=== PATIENT | female | born 1940 | race African-American/Black ===

== ENCOUNTER 2017-06-26 22:59 | Observation (INO) | payer OTHER, BC ==
[2017-06-27 00:19] VITALS: BMI 26.9
--- NOTE | 2017-06-27 01:16 | PDOC ---
Attending Attestation - HPI HPI: 06/27/17 01:37 The patient is a 76 year old female, with a significant past medical history of asthma, MVP with MVP pain syndrome, hypertension, and hyperlipidemia, who presents to the emergency department with, intermittent radiating left sided chest pain for three days. The patient reports the pain to radiate to the left upper back, neck, and shoulder. She ranks the pain as a 5. Documentation prepared by Anibal Rosado, acting as medical planner for Juancarlos Rincon MD. <Anibal Rosado - Last Filed: 06/27/17 01:37> - Resident Resident Name: Sara Vidal - ED Attending Attestation I have performed the following: I have examined & evaluated the patient, The case was reviewed & discussed with the resident, I agree w/resident's findings & plan, Exceptions are as noted - Physicial Exam PE: 06/27/17 02:22 Patient is awake and alert, well-nourished, asymptomatic, normotensive, with oxygen saturation of 98% in room air cta rrr No lower extremity edema bilaterally - Medical Decision Making 06/27/17 02:22 Patient is 76-year-old female with history of asthma, mitral valve prolapse who presents via with atypical chest discomfort for the past several days. EKG reveals no evidence of acute ischemia. Will obtain 2 sets of cardiac enzymes, we 'll obtain chest x-ray to rule out cardiomegaly/infiltrate still/effusion. Will discuss with cardiology regarding disposition and follow-up. <Juancarlos Rincon - Last Filed: 06/27/17 02:23>
--- NOTE | 2017-06-27 01:29 | PDOC ---
History of Present Illness - General Chief Complaint: Pain, Acute Stated Complaint: PAIN Time Seen by Provider: 06/27/17 00:56 History Source: Patient Exam Limitations: No Limitations - History of Present Illness Initial Comments: This is a 76 YOF with h/o asthma, MVP with MVP pain syndrome, HTN, and HLD who presents c/o left-sided chest pain radiating to the left neck, left upper back, and shoulder for the past 3 days. The pain is a 5/10 ache with sharper twinges, it is intermittent lasting 5-10 minutes at a time, and comes on about 2 times/ day. It worsens when she moves her left arm. She additionally notes nausea, SOB ("feel like I can't get enough oxygen"), headache, and cough. She is unmedicated for her HTN and HLD because of stated allergic reactions to most medications she has ever tried. She otherwise denies any symptoms lately. Past History - Past Medical History Allergies/Adverse Reactions: Allergies Allergy/AdvReac Type Severity Reaction Status Date / Time Penicillins Allergy Intermediate Swelling Verified 06/27/17 00:17 Sulfa (Sulfonamide Allergy Intermediate Rash Verified 06/27/17 00:17 Antibiotics) all blood pressure meds Allergy Uncoded 06/27/17 00:17 Home Medications: Ambulatory Orders Ascorbic Acid [Vitamin C] 1 tab PO DAILY 04/03/13 Vitamin B Complex [B Complex] 1 each PO DAILY 04/03/13 Multivitamins [Multivit ([facility] Formulary)] 1 each PO DAILY 04/04/13 Ranitidine HCl [Zantac] 150 mg PO DAILY PRN 09/24/14 L.acidoph,Paracasei, B.lactis [Probiotic] 1 each PO DAILY 03/10/17 Anemia: No Asthma: Yes Cancer: No Cardiac Disorders: Yes (MVP) CVA: No COPD: No CHF: No Dementia: No Diabetes: No GI Disorders: Yes (ACID REFLUX) Disorders: No HTN: Yes Hypercholesterolemia: Yes Liver Disease: No Seizures: No Thyroid Disease: No - Surgical History 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) Appendectomy: No Cardiac Surgery: No Cholecystectomy: No Lung Surgery: No Neurologic Surgery: No Orthopedic Surgery: No - Suicide/Smoking/Psychosocial Hx Smoking History: Never smoked Have you smoked in the past 12 months: No Information on smoking cessation initiated: No Hx Alcohol Use: No Drug/Substance Use Hx: No Substance Use Type: None Hx Substance Use Treatment: No Cardiac Specific PMH - Complaint Specific PMHX Pacemaker: No Review of Systems - Review of Systems Able to Perform ROS?: Yes Constitutional: No: Chills, Fever, Unexplained wgt Loss HEENTM: No: Nose Congestion, Throat Pain Respiratory: Yes: Cough, Shortness of Breath Cardiac (ROS): Yes: Chest Pain. No: Palpitations ABD/GI: Yes: Nausea. No: Constipated, Diarrhea, Vomiting : No: Burning, Dysuria Musculoskeletal: No: Back Pain, Neck Pain Integumentary: No: Bruising, Rash Neurological: No: Headache, Numbness, Tingling, Weakness, Dizziness Endocrine: No: Unexplained Weight Gain, Unexplained Weight Loss *Physical Exam - Vital Signs Last Vital Signs Temp Pulse Resp BP Pulse Ox 97.6 F 73 16 120/70 99 06/27/17 00:17 06/27/17 00:17 06/27/17 06:14 06/27/17 06:14 06/27/17 00:17 - Physical Exam General Appearance: Yes: Nourished, Appropriately Dressed, Other (pleasant older adult female, well appearing, mildly anxious, answering questions appropriately). No: Apparent Distress HEENT: positive: EOMI, FERMÍN, Normal Voice, Hearing Grossly Normal. negative: Scleral Icterus (R), Scleral Icterus (L), Nasal Congestion Neck: positive: Trachea midline, Supple. negative: Tender, Rigid Respiratory/Chest: positive: Lungs Clear, Normal Breath Sounds. negative: Respiratory Distress, Crackles, Rhonchi, Stridor, Wheezing Cardiovascular: positive: Regular Rhythm, Regular Rate. negative: Edema, JVD, Murmur Gastrointestinal/Abdominal: positive: Normal Bowel Sounds, Soft. negative: Tender, Organomegaly, Pulsatile Mass, Guarding Musculoskeletal: positive: Normal Inspection. negative: Decreased Range of Motion, Vertebral Tenderness Extremity: positive: Normal Capillary Refill, Normal Inspection, Normal Range of Motion. negative: Tender, Cyanosis Integumentary: positive: Normal Color, Dry, Warm. negative: Erythema, Rash, Bruising Neurologic: positive: optic fibre drawer II-XII NML intact (grossly), Fully Oriented, Alert, Normal Mood/Affect, Normal Response, Motor Strength 5/5 Heart Score/ECG Review - History History: Moderately suspicious - Electrocardiogram EKG: Normal - Age Age: >/= 65 - Risk Factors Risk Factors Heart Score: Yes Hx Hypercholesterolemia, Yes Hx Hypertension Based on the list above the patient has:: 1-2 risk factors - Troponin Troponin: </= normal limit - Score Heart Score - Total: 4 #1 ECG reviewed & interpreted by me at: 00:45 NSR rate 62, normal axes and intervals, no ST-T changes, LVH by voltage criteria ED Treatment Course - LABORATORY CBC & Chemistry Diagram: 06/27/17 01:56 06/27/17 01:56 - ADDITIONAL ORDERS Additional order review: Laboratory Results 06/27/17 06/27/17 06/27/17 01:56 01:56 01:56 WBC 5.0 RBC 3.88 Hgb 12.1 Hct 37.0 MCV 95.3 MCH 31.2 MCHC 32.7 RDW 13.4 Plt Count 258 MPV 7.3 L Neutrophils % 48.6 Lymphocytes % 39.0 Monocytes % 7.9 Eosinophils % 3.8 Basophils % 0.7 PT with INR 11.00 INR 0.97 Sodium 141 Potassium 3.7 Chloride 105 Carbon Dioxide 25 D Anion Gap 11 BUN 11 Creatinine 0.7 Creat Clearance w eGFR > 60 Random Glucose 110 H Calcium 8.8 Total Bilirubin 0.3 AST 15 ALT 22 D Alkaline Phosphatase 55 Creatine Kinase 168 Creatine Kinase Index 1.6 CK-MB (CK-2) 2.698 Troponin I < 0.02 Total Protein 7.0 Albumin 3.4 06/27/17 01:56 RBC 3.88 MCV 95.3 MCHC 32.7 RDW 13.4 MPV 7.3 L Neutrophils % 48.6 Lymphocytes % 39.0 Monocytes % 7.9 Eosinophils % 3.8 Basophils % 0.7 Medical Decision Making - Medical Decision Making 76 YOF with h/o MVP, asthma, HTN, HLD, p/w left CP radiating to left neck/ shoulder with SOB/nausea x3d. On exam VS wnl and patient is in NAD but appears anxious, heart and lung exams wnl, nontender abdomen, no edema. DDX IBNLT costochondritis, ACS, cholecystitis, PUD, anemia with demand ischemia , UTI/pyelo/renal stone, etc. Ordered is CBCD, CMP, cardiac panel, PT/INR, CXR, EKG. 06/27/17 04:11 Labs, EKG, CXR resulted unremarkable for possible causative pathology. Awaiting repeat troponin at 6 am. Will contact Pt's welding machine tender (Dr. Figueroa) at 6:30 am and plan dispo with him. Patient is pain free at this time. 06/27/17 06:06 Patient's troponin repeat is drawn and sent to lab awaiting results. Page is placed to Pt's welding machine tender (Dr. Figueroa) to inform of the patient's visit to the ED. Dr. Figueroa recommends obs admission with EKG in the morning, consult placed to him. Repeat EKG is ordered. [facility] is microblogged for obs tele admission. 06/27/17 06:37 Patient admitted to obs tele. Consult placed to Dr. Figueroa. *DC/Admit/Observation/Transfer Diagnosis at time of Disposition: Chest pain Qualifiers: Chest pain type: unspecified Qualified Code(s): R07.9 - Chest pain, unspecified - Discharge Dispostion Condition at time of disposition: Guarded Admit: Yes Decision to Admit order Date/Time: Decision to Admit Order Category Date Time Status Decision to Admit to Hospital Routine Admission 06/27/17 06:28 Ordered - Referrals - Patient Instructions - Post Discharge Activity
[2017-06-27 02:09] LABS: BASO % 0.7 % (0-2.0); EOS % 3.8 % (0-4.5); HEMOGLOBIN 12.1 GM/dL (10.7-15.3); MCH 31.2 pg (25.7-33.7); MCHC 32.7 g/dl (32.0-36.0); MEAN CELL VOLUME 95.3 fl (80-96); MEAN PLT VOLUME 7.3 fl (7.5-11.1); MONO % 7.9 % (3.8-10.2); NEUT % 48.6 % (42.8-82.8); PLATELET COUNT 258 K/MM3 (134-434); RBC 3.88 M/mm3 (3.60-5.2); RDW 13.4 % (11.6-15.6)
[2017-06-27 02:31] LABS: ALBUMIN 3.4 g/dl (3.4-5.0); ANION GAP 11 (8-16); BILIRUBIN,TOTAL 0.3 mg/dL (0.2-1.0); BLOOD UREA NITROGEN 11 mg/dL (7-18); CALCIUM 8.8 mg/dL (8.5-10.1); CHLORIDE 105 mmol/L (98-107); CO2 25 mmol/L (21-32); CREATININE 0.7 mg/dL (0.55-1.02); GLUCOSE,RANDOM 110 mg/dL (74-106); POTASSIUM 3.7 mmol/L (3.5-5.1); SGOT/AST 15 U/L (15-37); SGPT/ALT 22 U/L (12-78); SODIUM 141 mmol/L (136-145)
[2017-06-27 02:34] LABS: ALK PHOS 55 U/L (45-117)
[2017-06-27 02:42] LABS: INR 0.97 (0.82-1.09)
[2017-06-27] MEDS ORDERED: ALBUTEROL SO4 0.083% IH SOL 2.5 MG/3 ML VIAL.NEB. NEB PRN ×2 (09:31→10:20)
[2017-06-27] MEDS ORDERED: RANITIDINE HCL 150 MG TABLET (FP) PO PRN (09:31)
[2017-06-27] MEDS ORDERED: ASPIRIN 325 MG TABLET PO SCH (10:00)
[2017-06-27] MEDS ORDERED: ASPIRIN 325 MG TABLET ONE (10:19)
--- NOTE | 2017-06-27 10:25 | EKG ---
Test Reason : Blood Pressure : / mmHG Vent. Rate : 067 BPM Atrial Rate : 067 BPM P-R Int : 156 ms QRS Dur : 084 ms QT Int : 426 ms P-R-T Axes : 051 070 060 degrees QTc Int : 450 ms NORMAL SINUS RHYTHM NORMAL ECG WHEN COMPARED WITH ECG OF 27-JUN-2017 00:41, NO SIGNIFICANT CHANGE WAS FOUND Confirmed by SRUTHI YEN MD ([id number]) on 06/27/2017 10:25:12 AM Referred By: Confirmed By:SRUTHI YEN MD
--- NOTE | 2017-06-27 10:28 | EKG ---
Test Reason : Blood Pressure : / mmHG Vent. Rate : 062 BPM Atrial Rate : 062 BPM P-R Int : 164 ms QRS Dur : 092 ms QT Int : 426 ms P-R-T Axes : 050 041 049 degrees QTc Int : 432 ms NORMAL SINUS RHYTHM MINIMAL VOLTAGE CRITERIA FOR LVH, MAY BE NORMAL VARIANT BORDERLINE ECG WHEN COMPARED WITH ECG OF 24-SEP-2014 13:58, NO SIGNIFICANT CHANGE WAS FOUND Confirmed by YOVANA SOARES, SRUTHI ([id number]) on 06/27/2017 10:27:30 AM Referred By: Confirmed By:SRUTHI YEN MD
--- NOTE | 2017-06-27 12:25 | HP ---
CHIEF COMPLAINT: chest pain PCP: Dr. Morris HISTORY OF PRESENT ILLNESS: This is a 76 year old female with a PMH of mitral valve prolapse, asthma, RA, HTN, GERD who presents to the hospital complaining of chest pain that started around [place]ody Mulu-a week ago. It is intermittent, associated with physical activity, relieved by lying down. It is located on left side of the chest, radiating to the neck and back. She states that yesterday she had nausea that resolved today. The pt follows Dr Figueroa since 1995 and had cardiac workup done that was normal. She denies SOB, dizziness, lightheadedness, palpitations. ER course was notable for: (1)EKG, CXR (2)troponins negative PAST MEDICAL HISTORY: as above PAST SURGICAL HISTORY: myomectomy 2017 Social History: Smoking:no Alcohol:no Drugs:mo Family History: N/A Allergies Penicillins Allergy (Intermediate, Verified 06/27/17 00:17) Swelling Sulfa (Sulfonamide Antibiotics) Allergy (Intermediate, Verified 06/27/17 00:17) Rash G6PD all blood pressure meds Allergy (Uncoded 06/27/17 00:17) HOME MEDICATIONS: Home Medications Medication Instructions Recorded Ascorbic Acid [Vitamin C] 1 tab PO DAILY 04/03/13 Vitamin B Complex [B Complex] 1 each PO DAILY 04/03/13 Multivitamins [Multivit ([facility] 1 each PO DAILY 04/04/13 Formulary)] Ranitidine HCl [Zantac] 150 mg PO DAILY PRN 09/24/14 L.acidoph,Paracasei, B.lactis 1 each PO DAILY 03/10/17 [Probiotic] Albuterol 0.083% Nebulizer Michaelle 1 neb NEB QID PRN 06/27/17 [Ventolin 0.083%] Aspirin [ASA -] 325 mg PO DAILY 06/27/17 REVIEW OF SYSTEMS CONSTITUTIONAL: Absent: fever, chills, diaphoresis, generalized weakness HEENT: Absent: rhinorrhea, nasal congestion, throat pain, throat swelling CARDIOVASCULAR: chest pain, Absent: syncope, palpitations, irregular heart rate, lightheadedness RESPIRATORY: Absent: cough, shortness of breath, dyspnea with exertion, GASTROINTESTINAL: Absent: abdominal pain, nausea, vomiting, diarrhea, constipation, GENITOURINARY: Absent: dysuria, frequency, urgency, hesitancy, MUSCULOSKELETAL: neck pain Absent: myalgia, arthralgia, joint swelling, back pain, SKIN: Absent: rash, itching, pallor ENDOCRINE: Absent: unexplained weight gain, unexplained weight loss NEUROLOGIC: headache Absent: focal weakness or paresthesias, dizziness, unsteady gait PHYSICAL EXAMINATION Vital Signs - 24 hr 06/27/17 06/27/17 06/27/17 00:17 06:14 10:00 Temperature 97.6 F Pulse Rate 73 Pulse Rate [ 78 Apical] Respiratory 14 16 18 Rate Blood Pressure 137/93 Blood Pressure 120/70 130/80 [Right Arm] O2 Sat by Pulse 99 100 Oximetry (%) GENERAL: Awake, alert, and fully oriented, in no acute distress. HEAD: Normal with no signs of trauma. EYES: Pupils equal, round and reactive to light, extraocular movements intact, sclera anicteric EARS, NOSE, THROAT: oropharynx clear without exudates. Moist mucous membranes. NECK: Normal range of motion, supple without lymphadenopathy, JVD LUNGS: Breath sounds equal, clear to auscultation bilaterally. No wheezes, and no crackles. No accessory muscle use. HEART: Regular rate and rhythm, normal S1 and S2 without murmur, rub or gallop ABDOMEN: Soft, nontender, not distended, normoactive bowel sounds, no guarding, no rebound, no masses. MUSCULOSKELETAL: Normal range of motion at all joints. No bony deformities or tenderness. No CVA tenderness. UPPER EXTREMITIES: No peripheral edema. LOWER EXTREMITIES: No peripheral edema. NEUROLOGICAL: Normal speech, no facial asymmetry. Normal gait. PSYCHIATRIC: Cooperative. Good eye contact. Appropriate mood and affect. SKIN: Warm, dry, normal turgor, no rashes or lesions noted, abdominal scar s/p surgery. Laboratory Results - last 24 hr 06/27/17 06/27/17 06/27/17 01:56 01:56 01:56 WBC 5.0 RBC 3.88 Hgb 12.1 Hct 37.0 MCV 95.3 MCH 31.2 MCHC 32.7 RDW 13.4 Plt Count 258 MPV 7.3 L Neutrophils % 48.6 Lymphocytes % 39.0 Monocytes % 7.9 Eosinophils % 3.8 Basophils % 0.7 PT with INR 11.00 INR 0.97 Sodium 141 Potassium 3.7 Chloride 105 Carbon Dioxide 25 D Anion Gap 11 BUN 11 Creatinine 0.7 Creat Clearance w eGFR > 60 Random Glucose 110 H Calcium 8.8 Total Bilirubin 0.3 AST 15 ALT 22 D Alkaline Phosphatase 55 Creatine Kinase 168 Creatine Kinase Index 1.6 CK-MB (CK-2) 2.698 Troponin I < 0.02 Total Protein 7.0 Albumin 3.4 06/27/17 06/27/17 06:24 10:45 WBC RBC Hgb Hct MCV MCH MCHC RDW Plt Count MPV Neutrophils % Lymphocytes % Monocytes % Eosinophils % Basophils % PT with INR INR Sodium Potassium Chloride Carbon Dioxide Anion Gap BUN Creatinine Creat Clearance w eGFR Random Glucose Calcium Total Bilirubin AST ALT Alkaline Phosphatase Creatine Kinase 152 Creatine Kinase Index 1.3 CK-MB (CK-2) 2.074 Troponin I < 0.02 < 0.02 Total Protein Albumin ASSESSMENT/PLAN: 76 year old female with a PMH of mitral valve prolapse, asthma, RA, HTN, GERD who presents to the hospital complaining of chest pain that started a week ago, she is admitted for observation. Chest pain: -typical for ACS( located on left side of her chest, radiating to the neck and arm, worse with physical activity, relieved by rest) -trended troponins x 3-negative -ECG no acute changes, -KIM score 3 -consulted Track Repair Supervisor- Dr. Figueroa-will discuss need for stress test -const ASA -monitor on telemetry -cardiac monitoring -low probability of PE, D-Dimer pending Asthma: -cont Albuterol inhaler RA: -stable, no meds HTN: -no meds DVT PPX: -early ambulation Dispo: we will contact Track Repair Supervisor, observation for now. Case discussed with Dr Fajardo and Dr Velasco. Full H&P to follow. Problem List - Problem (1) Chest pain Code(s): R07.9 - CHEST PAIN, UNSPECIFIED Qualifiers: Chest pain type: unspecified Qualified Code(s): R07.9 - Chest pain, unspecified Visit type - Emergency Visit Emergency Visit: Yes ED Registration Date: 06/27/17 Care time: The patient presented to the Emergency Department on the above date and was hospitalized for further evaluation of their emergent condition. - New Patient This patient is new to me today: Yes Date on this admission: 06/27/17 - Critical Care Critical Care patient: No
--- NOTE | 2017-06-27 12:35 | HP ---
CHIEF COMPLAINT: Left-sided chest pain PCP: Dr. Lizzy Payne Top Collar Baster: Dr. Figueroa HISTORY OF PRESENT ILLNESS: 76F with PMH of mitral valve prolaspse with associated chest pain syndrome, htn , hld, asthma, presents with intermittent Left-sided chest pain since (x 7 days). Pain is brought on by exertion and relieved with rest. Pt reports getting the pain about twice per day. Pain is described as sharp, lasting for only a few seconds, rated 5/10, radiating to Left neck and back. The feeling that radiates to the Left neck and back is a feeling of pressure which lasts for a couple hours after each episode of chest pain, and also resolves on its own. Pt also reports some coughing and sore throat x 1 wk. Pt reports some sob yesterday prompting her to come to the ER, which has since resolved. Pt denies sick contacts. Pt reports intolerance to most medications. She takes garlic for her htn. She takes vinegar and honey for her asthma, and also Albuterol prn. She takes glucosamine for her rheumatoid arthritis. She occasionally takes Zantac for her GERD. She occasionally takes full-dose ASA. ER course was notable for: (1) VSS (2) trop (-) x 3 (3) cbc and bmp wnl PAST MEDICAL HISTORY: mitral valve prolapse with associated chest pain syndrome htn hld asthma rheumatoid arthritis GERD PAST SURGICAL HISTORY: hysteroscopic myomectomy 2/ post-menopausal bleeding 02/2017 exploratory laporatomy for liver tumor Social History: Smoking: never Alcohol: denies Drugs: denies Allergies Penicillins Allergy (Intermediate, Verified 06/27/17 00:17) Swelling Sulfa (Sulfonamide Antibiotics) Allergy (Intermediate, Verified 06/27/17 00:17) Rash G6PD all blood pressure meds Allergy (Uncoded 06/27/17 00:17) HOME MEDICATIONS: Home Medications Medication Instructions Recorded Ascorbic Acid [Vitamin C] 1 tab PO DAILY 04/03/13 Vitamin B Complex [B Complex] 1 each PO DAILY 04/03/13 Multivitamins [Multivit ([facility] 1 each PO DAILY 04/04/13 Formulary)] Ranitidine HCl [Zantac] 150 mg PO DAILY PRN 09/24/14 L.acidoph,Paracasei, B.lactis 1 each PO DAILY 03/10/17 [Probiotic] Albuterol 0.083% Nebulizer Michaelle 1 neb NEB QID PRN 06/27/17 [Ventolin 0.083%] Aspirin [ASA -] 325 mg PO DAILY 06/27/17 REVIEW OF SYSTEMS CONSTITUTIONAL: Absent: fever, chills, diaphoresis, generalized weakness, malaise, loss of appetite, weight change HEENT: sore throat Absent: rhinorrhea, nasal congestion, visual changes CARDIOVASCULAR: chest pain Absent: irregular heart rate, lightheadedness, peripheral edema RESPIRATORY: cough, sob Absent: orthopnea, wheezing, stridor, hemoptysis GASTROINTESTINAL: nausea Absent: abdominal pain, abdominal distension, vomiting, diarrhea, constipation, melena, hematochezia GENITOURINARY: Absent: dysuria, hematuria MUSCULOSKELETAL: arthralgia 2/2 rheumatoid arthritis Absent: myalgia, joint swelling, back pain, neck pain SKIN: Absent: rash, itching, pallor HEMATOLOGIC/IMMUNOLOGIC: Absent: easy bleeding, easy bruising ENDOCRINE: Absent: unexplained weight gain, unexplained weight loss NEUROLOGIC: headaches - chronic Absent: focal weakness or paresthesias, dizziness PHYSICAL EXAMINATION Vital Signs - 24 hr 06/27/17 06/27/17 06/27/17 00:17 06:14 10:00 Temperature 97.6 F Pulse Rate 73 Pulse Rate [ 78 Apical] Respiratory 14 16 18 Rate Blood Pressure 137/93 Blood Pressure 120/70 130/80 [Right Arm] O2 Sat by Pulse 99 100 Oximetry (%) GENERAL: Awake, alert, and fully oriented, in no acute distress. HEAD: Normal with no signs of trauma. EYES: Extraocular movements intact, sclera anicteric, conjunctiva clear. No lid lag. EARS, NOSE, THROAT: Ears normal, nares patent, oropharynx clear without exudates , nonerythematous. NECK: Normal range of motion, supple without lymphadenopathy, JVD, or masses. LUNGS: Breath sounds equal, clear to auscultation bilaterally. No wheezes, and no crackles. No accessory muscle use. HEART: Regular rate and rhythm, normal S1 and S2 without murmur, rub or gallop. ABDOMEN: Soft, nontender, not distended, no guarding. LOWER EXTREMITIES: Warm, well-perfused. No calf tenderness. No peripheral edema. NEUROLOGICAL: Cranial nerves grossly II-XII intact. Normal speech. PSYCHIATRIC: Cooperative. Good eye contact. Appropriate mood and affect. SKIN: Warm, dry, normal turgor, no rashes or lesions noted. Laboratory Results - last 24 hr 06/27/17 06/27/17 06/27/17 01:56 01:56 01:56 WBC 5.0 RBC 3.88 Hgb 12.1 Hct 37.0 MCV 95.3 MCH 31.2 MCHC 32.7 RDW 13.4 Plt Count 258 MPV 7.3 L Neutrophils % 48.6 Lymphocytes % 39.0 Monocytes % 7.9 Eosinophils % 3.8 Basophils % 0.7 PT with INR 11.00 INR 0.97 Sodium 141 Potassium 3.7 Chloride 105 Carbon Dioxide 25 D Anion Gap 11 BUN 11 Creatinine 0.7 Creat Clearance w eGFR > 60 Random Glucose 110 H Calcium 8.8 Total Bilirubin 0.3 AST 15 ALT 22 D Alkaline Phosphatase 55 Creatine Kinase 168 Creatine Kinase Index 1.6 CK-MB (CK-2) 2.698 Troponin I < 0.02 Total Protein 7.0 Albumin 3.4 06/27/17 06/27/17 06:24 10:45 WBC RBC Hgb Hct MCV MCH MCHC RDW Plt Count MPV Neutrophils % Lymphocytes % Monocytes % Eosinophils % Basophils % PT with INR INR Sodium Potassium Chloride Carbon Dioxide Anion Gap BUN Creatinine Creat Clearance w eGFR Random Glucose Calcium Total Bilirubin AST ALT Alkaline Phosphatase Creatine Kinase 152 Creatine Kinase Index 1.3 CK-MB (CK-2) 2.074 Troponin I < 0.02 < 0.02 Total Protein Albumin IMAGIN06/27/17 CXR -> no acute chest pathology ASSESSMENT/PLAN: 76F with PMH of MVP with associated chest pain syndrome, htn, hld, asthma, RA, GERD, presents with intermittent Left-sided chest pain x 7 days, admitted to [facility] Obs. # chest pain - most recent Echo 10/2014 reveals Left ventricle normal in size, thickness and function. Right ventricle normal in size and function. Mild aortic sclerosis and moderate aortic regurg. - f/u Echo - trops (-) x 3 - continue ASA - Cardiology Consult with pt's Top Collar Baster Dr. Figueroa - consider stress test as inpt or outpt # htn - pt reports intolerance to all blood pressure medications - continue to monitor # hld - pt reports intolerance to anti-hyperlipidemic medications - f/u lipid panel # asthma - continue home med of Albuterol prn # GERD - continue min emed of Zantac # FEN - Fluids: po - Electrolytes: wnl, continue to monitor - Nutrition: low sodium diet # Prophylaxis - DVT ppx with early ambulation Visit type - Emergency Visit Emergency Visit: Yes ED Registration Date: 06/27/17 Care time: The patient presented to the Emergency Department on the above date and was hospitalized for further evaluation of their emergent condition. - New Patient This patient is new to me today: Yes Date on this admission: 06/27/17 - Critical Care Critical Care patient: No
--- NOTE | 2017-06-27 13:56 | PN ---
Teaching Attending Note Name of Resident: Jacquelyn Velasco ATTENDING PHYSICIAN STATEMENT I saw and evaluated the patient. I reviewed the resident's note and discussed the case with the resident. I agree with the resident's findings and plan as documented. SUBJECTIVE:76yo F with PMH ashtma, MVP, RA, HTN, dyslipdemia presenting with CP x1 week. CP intermittently on exertion with radiation to the neck. sometimes assoc with nausea and SOB. states she takes all herbal supplements for her "disease" and no medications. no stress test or cardiac cath. dnies CP at this time, SOB, fever, chills, cough, N/V/C/D OBJECTIVE: Last Vital Signs Temp Pulse Resp BP Pulse Ox 97.6 F 89 18 137/93 98 06/27/17 00:17 06/27/17 12:10 06/27/17 12:10 06/27/17 12:10 06/27/17 12:33 General NAD CV S1 S2 + no chest wall tenderness ASSESSMENT AND PLAN: 76yo F with PMH ashtma, MVP, RA, HTN, dyslipdemia presenting with CP x1 week 1. Typical CP- tele observation. no events on director of cardiac rehabilitation. CE neg x 3. will check ddimer. start cardizem po. spoke with Dr Laws about plan. pt will need stress test. pt agrees to follow up with [employer]et [employer] for stress test on . will d/c on cardizem an NTG SL. stressed importance of follow up and medication compliance. verbalized understanding and agreement with plan
--- NOTE | 2017-06-27 14:54 | CONS ---
DATE OF CONSULTATION: 06/27/2017 CARDIOLOGY CONSULTATION REQUESTED BY: Juancarlos Rincon MD CHIEF COMPLAINT: Chest pain. A 76-year-old female with long-standing history of hypertension, hyperlipidemia, hyperlipidemia, bronchial asthma, mitral valve prolapse, and chronic atypical chest pain. Patient states last Wednesday she developed sharp left neck discomfort, which has been persistent. There is no clearcut relationship to change in position. It is nonexertional, nonpleuritic in nature. She also has been experiencing intermittent upper left sharp localized chest pain, which again is nonexertional and nonpleuritic. Patient had an episode of mild dyspnea and used her rescue inhaler, with mild relief. There is no history of wheezing, cough, or expectoration. The upper chest pain that she describes has been chronic in nature and states that has been occurring over several years and attributes it to mitral valve prolapse. No history of palpitations, lightheadedness, dizziness, presyncope, or syncope reported. No history of cough or expectoration. No history of diabetes mellitus. The patient has poor history of taking medications. Patient would stop her medications and the only thing she currently is taking is garlic pills [id number]. Her primary doctor has tried multiple medications in the past and patient states that she develops side effects and has discontinued them. PAST HISTORY: As mentioned in the history of present illness. SOCIAL HISTORY: She is single, retired, does not smoke, has occasional glass of wine. FAMILY HISTORY: Father in his 60s of a myocardial infarction, had hypertension, and because of a cerebrovascular accident. had atrial fibrillation and was hypertensive. She had 1 sister who of pancreatic cancer. SURGICAL HISTORY: 1. Status post tonsillitis. 2. Right breast benign cyst. 3. Exploratory surgery for a possible liver tumor, which was negative. ALLERGIES: Intolerance to MULTIPLE MEDICATIONS. MEDICATIONS: None. REVIEW OF SYSTEMS: Constitutional: No history of chills, fever or night sweats. No history of unintentional weight loss. HEENT: No history of headaches, diplopia, blurred vision reported. No history of epistaxis, hoarseness, tinnitus or deafness. Cardiovascular: See history of present illness. Respiratory: No history of cough, expectoration or hemoptysis. See history of present illness. Gastrointestinal: History of gastroesophageal reflux disease. No history of nausea, vomiting, melena, or hematemesis. No history of abdominal pain or discomfort. No history of change in bowel habits reported. Central nervous system: No history of seizures or syncope. No history of focal weakness. Denies having lightheadedness or dizziness. Endocrine: No history of polyuria or polydipsia. No history of intolerance to cold or warm weather. Musculoskeletal: No history of myalgias or arthralgias reported. Genitourinary: History of uterine polyps removed on 2 different occasions. No history of dysuria, frequency, or hematuria. Hematological: No history of ecchymosis, bleeding, or anemia. EXAMINATION: General: A 76-year-old female, who is alert and coherent, was in no distress. No pallor, cyanosis, clubbing, or jaundice. Vital Signs: Blood pressure 146/96 mmHg. Pulse 86 beats per minute and regular. Weight was 162 pounds. Neck: Supple. No jugular venous distention. Carotids were 2+. Upstrokes were normal. No bruits were heard and no thyromegaly was present. Heart: No heaves or thrills. S1 and S2 were normal. Non-ejection systolic clicks were heard along the left sternal border and apex. No murmur or gallops were heard. Lungs: Clear on auscultation. Chest: Normal AP diameter. Expansion was symmetrical. Abdomen: Soft, protuberant, and nontender. No hepatosplenomegaly or palpable masses were felt. Bowel sounds were present. No bruits were heard. Extremities: No calf tenderness or dependent edema. Femoral pulses were 2+. ECG reported as normal sinus rhythm, minimal voltage criteria for LVH, may be normal variant. Borderline ECG. When compared to ECG of 24 September 2014, no significant change was found. Repeat electrocardiogram revealed normal sinus rhythm and no significant change was reported when compared to earlier tracing. X-ray of chest impression: No acute chest pathology. No change of adverse nature seen. LABORATORY DATA: June 27, 2017, WBC count 5000, hemoglobin 12.1 g, platelet count 250,000, normal differential. Chemistry: Sodium 141, potassium 3.7, chloride 105, CO2 25, BUN 11, creatinine 0.7, random glucose 110 mg/dL. CK 168 and 152 respectively. Troponin is less than 0.02 on 3 different occasions. IMPRESSION: 1. Chest pain syndrome, atypical for coronary artery disease. 2. History of mitral valve prolapse. 3. Gastroesophageal reflux disease. 4. Hypertension, poorly controlled. 5. Bronchial asthma. RECOMMENDATIONS: 1. Long discussion regarding the need for medication for control of blood pressure. She is aware of the increased risks associated with ongoing hypertension, which includes but not limited to cerebrovascular accident, myocardial infarction, renal failure. 2. Counseled regarding dietary restrictions, especially curtailing salt intake. 3. Is being started on Cardizem CD 120 mg p.o. daily nightly. 4. Aspirin 81 mg p.o. daily. 5. She should continue ranitidine 150 mg p.o. nightly. 6. Patient has an appointment in the office on the 01 of July. 7. Further testing to be done on an outpatient basis. 8. Followup with PCP. Thank you for your referral. Yours sincerely, OSBALDO SEALS M.D. [id number]
--- NOTE | 2017-06-27 15:23 | DS ---
Physical Exam: SUBJECTIVE: Patient seen and examined. Asymptomatic at this time, offering no complaints. Pt denies chest pain, sob, abdominal pain, nausea, vomiting, fever , chills. Pt feels ready to go home. OBJECTIVE: Vital Signs Period Temp Pulse Resp BP Sys/Loza Pulse Ox Last 24 Hr 97.6 F 73-89 14-18 120-137/70-93 98-100 PHYSICAL EXAM GENERAL: Awake, alert, and fully oriented, in no acute distress. LUNGS: Breath sounds equal, clear to auscultation bilaterally. No wheezes, and no crackles. No accessory muscle use. HEART: Regular rate and rhythm, normal S1 and S2 without murmur, rub or gallop. (-) chest wall tenderness. ABDOMEN: Soft, nontender, not distended, no guarding. LOWER EXTREMITIES: Warm, well-perfused. No calf tenderness. No peripheral edema. PSYCHIATRIC: Cooperative. Good eye contact. Appropriate mood and affect. SKIN: Warm, dry, normal turgor, no rashes or lesions noted. LABS Laboratory Results - last 24 hr 06/27/17 06/27/17 06/27/17 01:56 01:56 01:56 WBC 5.0 RBC 3.88 Hgb 12.1 Hct 37.0 MCV 95.3 MCH 31.2 MCHC 32.7 RDW 13.4 Plt Count 258 MPV 7.3 L Neutrophils % 48.6 Lymphocytes % 39.0 Monocytes % 7.9 Eosinophils % 3.8 Basophils % 0.7 PT with INR 11.00 INR 0.97 D-Dimer Sodium 141 Potassium 3.7 Chloride 105 Carbon Dioxide 25 D Anion Gap 11 BUN 11 Creatinine 0.7 Creat Clearance w eGFR > 60 Random Glucose 110 H Calcium 8.8 Total Bilirubin 0.3 AST 15 ALT 22 D Alkaline Phosphatase 55 Creatine Kinase 168 Creatine Kinase Index 1.6 CK-MB (CK-2) 2.698 Troponin I < 0.02 Total Protein 7.0 Albumin 3.4 06/27/17 06/27/17 06/27/17 06:24 10:45 13:55 WBC RBC Hgb Hct MCV MCH MCHC RDW Plt Count MPV Neutrophils % Lymphocytes % Monocytes % Eosinophils % Basophils % PT with INR INR D-Dimer 203 Sodium Potassium Chloride Carbon Dioxide Anion Gap BUN Creatinine Creat Clearance w eGFR Random Glucose Calcium Total Bilirubin AST ALT Alkaline Phosphatase Creatine Kinase 152 Creatine Kinase Index 1.3 CK-MB (CK-2) 2.074 Troponin I < 0.02 < 0.02 Total Protein Albumin HOSPITAL COURSE: Date of Admission:06/27/17 Date of Discharge: 06/27/17 76F with PMH of MVP with associated chest pain syndrome, htn, hld, asthma, RA, GERD, presents with intermittent Left-sided chest pain x 7 days, admitted to Tele Obs. No events on cardic monitor. CE (-) x 3. Ddimer (-). Pt cleared by Cardiology for discharge home with Cardizem and Nitroglycerin sublingual tablets. Pt to f/u with Dr. Figueroa in his office on 07/01/17 for stress test as outpt. 06/27/17 CXR -> no acute chest pathology Pt medically stable for discharge home. Minutes to complete discharge: 35 Discharge Summary Reason For Visit: CHEST PAIN Current Active Problems Chest pain (Acute) Condition: Improved - Instructions Diet, Activity, Other Instructions: You were treated for chest pain. New medications include: - Cardizem 120mg daily - Nitroglycerin tabs placed under the tongue as needed for your Angina. You may take 1 tab every 5 minutes, for a maximum of 3 tabs. If you have chest pain not relieved by your 3rd nitroglycerin tab, come to the ER. Continue your other home medications as prescribed. Follow-ups: - with your Aircraft Instrument Engineer (Dr. Figueroa) in his office on 07/01/17, for a stress test. Please return to the hospital immediately if you experience persistent or increased chest pain, difficulty breathing, or for any medical emergency. Referrals: James Figueroa MD [Staff Physician] - 07/01/17 Disposition: HOME - Home Medications Comprehensive Discharge Medication List: Ambulatory Orders Ascorbic Acid [Vitamin C] 1 tab PO DAILY 04/03/13 Vitamin B Complex [B Complex] 1 each PO DAILY 04/03/13 Multivitamins [Multivit ([facility] Formulary)] 1 each PO DAILY 04/04/13 Ranitidine HCl [Zantac] 150 mg PO DAILY PRN 09/24/14 L.acidoph,Paracasei, B.lactis [Probiotic] 1 each PO DAILY 03/10/17 Albuterol 0.083% Nebulizer Michaelle [Ventolin 0.083% Nebulizer Soln -] 1 neb NEB QID PRN 06/27/17 Aspirin [ASA -] 325 mg PO DAILY 06/27/17 Diltiazem [Cardizem -] 30 mg PO QID #120 tablet 06/27/17 Nitroglycerin 0.3 mg SL [id number] PRN #10 tab.subl 06/27/17 This patient is new to me today: No Emergency Visit: Yes ED Registration Date: 06/27/17 Care time: The patient presented to the Emergency Department on the above date and was hospitalized for further evaluation of their emergent condition. Critical Care patient: No - Discharge Referral Referred to [facility] Med P.C.: No
[2017-06-27 15:42] VITALS: BP 122/74; PULSE 78; TEMP 98
== END 2017-06-27 15:40 | disposition home or self-care (01) ==
LOC: JER 22:59 → JERBED 06-27 06:28
PROVIDERS: ADMIT Internal Medicine; ATTEND Hospitalist
DX: R07.9 Chest pain, unspecified (principal); I10 Essential (primary) hypertension; E78.5 Hyperlipidemia, unspecified; J45.909 Unspecified asthma, uncomplicated; I34.1 Nonrheumatic mitral (valve) prolapse; K21.9 Gastro-esophageal reflux disease without esophagitis; M06.9 Rheumatoid arthritis, unspecified; Z88.2 Allergy status to sulfonamides; Z88.8 Allergy status to other drugs, medicaments and biological substances; Z88.0 Allergy status to penicillin; Z79.82 Long term (current) use of aspirin
CPT/HCPCS: 36415; 71010-TC; 80053; 82550; 82553; 84484; 85025; 85379; 85610; 93005; 93010; 99285-25; G0378

== ENCOUNTER 2017-08-16 17:59 | Emergency (ER) | payer OTHER, BC ==
[2017-08-16 18:16] VITALS: BP 145/93; PULSE 87; TEMP 97.8; BMI 26.9
--- NOTE | 2017-08-16 18:18 | PDOC ---
Rapid Medical Evaluation Chief Complaint: Back Pain Time Seen by Provider: 08/16/17 18:16 Medical Evaluation: Allergies Allergy/AdvReac Type Severity Reaction Status Date / Time Penicillins Allergy Intermediate Swelling Verified 08/16/17 18:14 Sulfa (Sulfonamide Allergy Intermediate Rash Verified 08/16/17 18:14 Antibiotics) all blood pressure meds Allergy Uncoded 08/16/17 18:14 Vital Signs Temp Pulse Resp BP Pulse Ox 97.8 F 87 18 145/93 99 08/16/17 18:14 08/16/17 18:14 08/16/17 18:14 08/16/17 18:14 08/16/17 18:14 08/16/17 18:16 I have performed a brief in-person evaluation of this patient. The patient presents with a chief complaint of: mitral valve prolapse hx, left sided back pain, sent by Dr. Figueroa to come in for eval, denies CP/SOB Pertinent physical exam findings: well appearing I have ordered the following: cardiac workup The patient will proceed to the ED for further evaluation. Discharge Disposition - Diagnosis Back pain - Referrals - Patient Instructions - Post Discharge Activity
[2017-08-16 18:52] LABS: BASO % 0.8 % (0-2.0); EOS % 2.8 % (0-4.5); HEMATOCRIT 37.6 % (32.4-45.2); HEMOGLOBIN 12.6 GM/dL (10.7-15.3); LYMPH % 35.4 % (8-40); MCH 31.6 pg (25.7-33.7); MCHC 33.5 g/dl (32.0-36.0); MEAN CELL VOLUME 94.4 fl (80-96); MEAN PLT VOLUME 7.7 fl (7.5-11.1); MONO % 7.9 % (3.8-10.2); NEUT % 53.1 % (42.8-82.8); PLATELET COUNT 310 K/MM3 (134-434); RBC 3.99 M/mm3 (3.60-5.2); RDW 13.4 % (11.6-15.6)
--- NOTE | 2017-08-16 19:12 | PDOC ---
History of Present Illness <Jenn Oliva - Last Filed: 08/16/17 21:33> - General History Source: Patient, Old Records Exam Limitations: No Limitations - History of Present Illness Initial Comments: 08/16/17 21:41 Patient is a 76 year old female with a significant past medical history of mitral valve prolapse with associated chest pain syndrome, htn, hld, asthma, who presents to the ED with complaints of left flank pain that began this morning. Patient reports experiencing sudden left flank pain while at home that she states began as an aching pain just over her ribs. She reports believing pain to be cardiac related, prompting her to call her machine cementer and folder. Patient reports machine cementer and folder stated she might have a pneumonia, and advised her to come into the ED for further evaluation. She reports pain began to radiate upper and around her body towards her neck as well as increase into a sharp pain. Denies chest pain, Sob. Denies nausea, vomiting. Denies fevers, chills. Denies trauma to affected area. Denies contact with sick individuals, out of state traveling. Denies any other symptoms. Allergies: Sulfa, Penicillin, Blood pressure meds. Social history: No smoking. No alcohol. No illicit drugs. Surgical history: hysteroscopic myomectomy / post-menopausal bleeding 02/2017 exploratory laparotomy for liver tumor PMD: Dr. Michael Mckinney Cardiology: Dr. Figueroa <Ken Yañez - Last Filed: 08/16/17 21:42> - General Chief Complaint: Back Pain Stated Complaint: PAIN Time Seen by Provider: 08/16/17 18:16 Past History - Past Medical History Anemia: No Asthma: Yes Cancer: No Cardiac Disorders: Yes (MVP) CVA: No COPD: No CHF: No Dementia: No Diabetes: No GI Disorders: Yes (ACID REFLUX) Disorders: No HTN: Yes Hypercholesterolemia: Yes Liver Disease: No Seizures: No Thyroid Disease: No - Surgical History 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) Appendectomy: No Cardiac Surgery: No Cholecystectomy: No Lung Surgery: No Neurologic Surgery: No Orthopedic Surgery: No - Suicide/Smoking/Psychosocial Hx Smoking History: Never smoked Have you smoked in the past 12 months: No Hx Alcohol Use: No Drug/Substance Use Hx: No Substance Use Type: None Hx Substance Use Treatment: No <Jenn Oliva - Last Filed: 08/16/17 21:33> <Ken Yañez - Last Filed: 08/16/17 21:42> - Past Medical History Allergies/Adverse Reactions: Allergies Allergy/AdvReac Type Severity Reaction Status Date / Time Penicillins Allergy Intermediate Swelling Verified 08/16/17 18:14 Sulfa (Sulfonamide Allergy Intermediate Rash Verified 08/16/17 18:14 Antibiotics) all blood pressure meds Allergy Uncoded 08/16/17 18:14 Home Medications: Ambulatory Orders Ascorbic Acid [Vitamin C] 1 tab PO DAILY 04/03/13 Vitamin B Complex [B Complex] 1 each PO DAILY 04/03/13 Multivitamins [Multivit ([facility] Formulary)] 1 each PO DAILY 04/04/13 Ranitidine HCl [Zantac] 150 mg PO DAILY PRN 09/24/14 L.acidoph,Paracasei, B.lactis [Probiotic] 1 each PO DAILY 03/10/17 Albuterol 0.083% Nebulizer Michaelle [Ventolin 0.083% Nebulizer Soln -] 1 neb NEB QID PRN 06/27/17 Aspirin 81 mg PO DAILY #30 tab.chew 06/27/17 Diltiazem HCl [Cardizem LA] 120 mg PO DAILY #30 tab.er.24h 06/27/17 Nitroglycerin 0.3 mg SL [id number] PRN #10 tab.subl 06/27/17 Review of Systems - Review of Systems Able to Perform ROS?: Yes Comments:: 08/16/17 21:41 GENERAL/CONSTITUTIONAL: No fever or chills. No weakness. HEAD, EYES, EARS, NOSE AND THROAT: No change in vision. No ear pain or discharge. No sore throat. GASTROINTESTINAL: No nausea, vomiting, diarrhea or constipation. GENITOURINARY: No dysuria, frequency, or change in urination. CARDIOVASCULAR: No chest pain or shortness of breath. RESPIRATORY: No cough, wheezing, or hemoptysis. MUSCULOSKELETAL: +Left flank pain. No joint or muscle swelling or pain. No neck pain. SKIN: No rash NEUROLOGIC: No headache, vertigo, loss of consciousness, or change in strength/ sensation. ENDOCRINE: No increased thirst. No abnormal weight change. HEMATOLOGIC/LYMPHATIC: No anemia, easy bleeding, or history of blood clots. ALLERGIC/IMMUNOLOGIC: No hives or skin allergy. <Ken Yañez - Last Filed: 08/16/17 21:42> *Physical Exam - Vital Signs Last Vital Signs Temp Pulse Resp BP Pulse Ox 97.8 F 87 18 145/93 99 08/16/17 18:14 18 18:14 18 18:14 18 18:14 08/16/17 18:14 <Jenn Oliva - Last Filed: 08/16/17 21:33> - Vital Signs Last Vital Signs Temp Pulse Resp BP Pulse Ox 97.8 F 87 18 145/93 99 08/16/17 18:14 18 18:14 18 18:14 18 18:14 08/16/17 18:14 - Physical Exam Comments: 08/16/17 21:41 GENERAL: Awake, alert, and fully oriented, in no acute distress HEAD: No signs of trauma EYES: PERRLA, EOMI, sclera anicteric, conjunctiva clear ENT: Auricles normal inspection, hearing grossly normal, nares patent, oropharynx clear without exudates. Moist mucosa NECK: Normal ROM, supple, no lymphadenopathy, JVD, or masses LUNGS: Breath sounds equal, clear to auscultation bilaterally. No wheezes, and no crackles HEART: Regular rate and rhythm, normal S1 and S2, no murmurs, rubs or gallops ABDOMEN: Soft, nontender, normoactive bowel sounds. No guarding, no rebound. No masses MUSCULOSKELETAL: + tenderness over left posterolateral ribs EXTREMITIES: Normal range of motion, no edema. No clubbing or cyanosis. No cords, erythema, or tenderness NEUROLOGICAL: Cranial nerves II through XII grossly intact. Normal speech, normal gait SKIN: Warm, Dry, normal turgor, no rashes or lesions noted. <Ken Yañez - Last Filed: 08/16/17 21:42> ED Treatment Course - LABORATORY CBC & Chemistry Diagram: 08/16/17 18:37 08/16/17 18:37 - ADDITIONAL ORDERS Additional order review: 08/16/17 18:37 RBC 3.99 MCV 94.4 MCHC 33.5 RDW 13.4 MPV 7.7 Neutrophils % 53.1 Lymphocytes % 35.4 Monocytes % 7.9 Eosinophils % 2.8 Basophils % 0.8 <Jenn Oliva - Last Filed: 08/16/17 21:33> - LABORATORY CBC & Chemistry Diagram: 08/16/17 18:37 08/16/17 18:37 - ADDITIONAL ORDERS Additional order review: Laboratory Results 08/16/17 02 18:37 18:37 PT with INR 11.10 INR 0.98 Sodium 139 Potassium 3.9 Chloride 105 Carbon Dioxide 28 Anion Gap 6 L BUN 11 Creatinine 0.8 Creat Clearance w eGFR > 60 Random Glucose 94 Calcium 8.7 Magnesium 2.1 Total Bilirubin 0.2 D AST 14 L ALT 22 Alkaline Phosphatase 68 Creatine Kinase 139 Troponin I < 0.02 Total Protein 7.7 Albumin 3.7 08/16/17 18:37 RBC 3.99 MCV 94.4 MCHC 33.5 RDW 13.4 MPV 7.7 Neutrophils % 53.1 Lymphocytes % 35.4 Monocytes % 7.9 Eosinophils % 2.8 Basophils % 0.8 - Medications Given in the ED: ED Medications Discontinued Medications Generic Name Dose Route Start Last Admin Trade Name Freq PRN Reason Stop Dose Admin Ibuprofen 600 mg 08/16/17 20:44 08/16/17 20:48 Motrin - PO 08/16/17 20:45 600 mg ONCE ONE Administration <Ken Yañez - Last Filed: 08/16/17 21:42> Medical Decision Making - Medical Decision Making 08/16/17 20:50 76F with MVP syndrome with atypical chest wall pain since this morning. No associated sxs to indicate ACS, is quite ttp to a very localized are of her L posterolateral chest wall. No skin changes, but early zoster is on the differential - I mentioned this to the patient and that she should look for signs of rash on a daily basis. EKG normal, labs unremarkable. Awaiting CXR, if normal, will likely dc home with PMD/cards f/u - follows with DR. Laws who recommended that pt come to ER for evaluation. If I'm able to reach Dr. Laws, I will discuss case with him prior to pt discharge. 08/16/17 21:33 I spoke to pt's machine cementer and folder, Dr. Laws about Ms Azar. He agrees with plan to discharge pt home, to recommend that she take her anti-HTN meds and tylenol/motrin. Less likely cardiac/pulm etiology, more likely muscular vs early zoster. Dr. Laws would like pt to call the office tomorrow for an appointment. <Jenn Oliva - Last Filed: 08/16/17 21:33> *DC/Admit/Observation/Transfer - Discharge Dispostion Admit: No <Jenn Oliva - Last Filed: 08/16/17 21:33> - Attestations Scribe Attestion: 08/16/17 21:41 Documentation prepared by Ken Yañez, acting as medical office clerk for Jenn Oliva DO, MD/. <Ken Yañez - Last Filed: 08/16/17 21:42> Diagnosis at time of Disposition: Back pain - Discharge Dispostion Disposition: HOME - Referrals Referrals: Lizzy Vargas MD [Staff Physician] - James Figueroa MD [Staff Physician] - - Patient Instructions Printed Discharge Instructions: DI for Thoracic Back Pain Additional Instructions: You were seen in the ER for back pain. You had labs, an EKG and a chest X-ray which were not concerning. We spoke with Dr. Laws who would like you to call the office tomorrow for an appointment. Please return to the ER if your symptoms worsen. Make sure to check your skin daily for a rash as this could possibly be early shingles. Take tylenol or motrin for pain and please make sure to take your blood pressure medications. - Post Discharge Activity
[2017-08-16 19:17] LABS: ALBUMIN 3.7 g/dl (3.4-5.0); ANION GAP 6 (8-16); BILIRUBIN,TOTAL 0.2 mg/dL (0.2-1.0); BLOOD UREA NITROGEN 11 mg/dL (7-18); CALCIUM 8.7 mg/dL (8.5-10.1); CHLORIDE 105 mmol/L (98-107); CO2 28 mmol/L (21-32); CREATININE 0.8 mg/dL (0.55-1.02); GLUCOSE,RANDOM 94 mg/dL (74-106); MAGNESIUM 2.1 mg/dL (1.8-2.4); POTASSIUM 3.9 mmol/L (3.5-5.1); SGOT/AST 14 U/L (15-37); SGPT/ALT 22 U/L (12-78); SODIUM 139 mmol/L (136-145); TOT PROT 7.7 g/dl (6.4-8.2)
[2017-08-16 19:18] LABS: INR 0.98 (0.82-1.09); PROTHROMBIN TIME (PATIENT) 11.1 SEC (9.98-11.88)
[2017-08-16 19:20] LABS: ALK PHOS 68 U/L (45-117)
[2017-08-16] MEDS ORDERED: IBUPROFEN 600 MG TABLET (FP) PO ONE ×2 (20:44→20:47)
--- NOTE | 2017-08-17 08:54 | EKG ---
Test Reason : Blood Pressure : / mmHG Vent. Rate : 069 BPM Atrial Rate : 069 BPM P-R Int : 156 ms QRS Dur : 082 ms QT Int : 398 ms P-R-T Axes : 009 021 029 degrees QTc Int : 426 ms NORMAL SINUS RHYTHM NORMAL ECG WHEN COMPARED WITH ECG OF 27-JUN-2017 06:39, NO SIGNIFICANT CHANGE WAS FOUND Confirmed by Savage Mclain MD ([id number]) on 08/17/2017 8:53:49 AM Referred By: Confirmed By:Savage Mclain MD
== END 2017-08-16 21:47 | disposition home or self-care (01) ==
LOC: SUPCPDRO 17:59 → JER 17:59
DX: M54.6 Pain in thoracic spine (principal); I10 Essential (primary) hypertension; K21.9 Gastro-esophageal reflux disease without esophagitis; I34.1 Nonrheumatic mitral (valve) prolapse
CPT/HCPCS: 36415; 71046-TC-FY; 80053; 82550; 83735; 84484; 85025; 85610; 93005; 93010; 99283-25

== ENCOUNTER 2017-10-26 16:54 | Observation (INO) | payer OTHER, BC ==
--- NOTE | 2017-10-26 17:06 | PDOC ---
Rapid Medical Evaluation Time Seen by Provider: 10/26/17 17:02 Medical Evaluation: Allergies Allergy/AdvReac Type Severity Reaction Status Date / Time Penicillins Allergy Intermediate Swelling Verified 08/16/17 18:14 Sulfa (Sulfonamide Allergy Intermediate Rash Verified 08/16/17 18:14 Antibiotics) all blood pressure meds Allergy Uncoded 08/16/17 18:14 10/26/17 17:02 I have performed a brief in-person evaluation of this patient. The patient presents with a chief complaint of: "soreness" to L chest since yesterday, sent in by Dr Figueroa of cardiology for eval, h/o asthma, RA, asthma, GERD, MVP, s/p neg stress test this year per pt (not on record here) Pertinent physical exam findings:BP 157/86, HR 109 I have ordered the following:ekg/cxr/labs The patient will proceed to the ED for further evaluation. 10/26/17 17:07 10/26/17 17:07 10/26/17 17:09
[2017-10-26 17:33] LABS: BASO % 0.8 % (0-2.0); EOS % 3.8 % (0-4.5); HEMATOCRIT 37.8 % (32.4-45.2); HEMOGLOBIN 13.1 GM/dL (10.7-15.3); LYMPH % 41.3 % (8-40); MCH 32.8 pg (25.7-33.7); MCHC 34.5 g/dl (32.0-36.0); MEAN PLT VOLUME 7.4 fl (7.5-11.1); NEUT % 44.1 % (42.8-82.8); PLATELET COUNT 324 K/MM3 (134-434); RBC 3.98 M/mm3 (3.60-5.2); RDW 13.2 % (11.6-15.6); WHITE BLOOD COUNT 5.7 K/mm3 (4.0-10.0)
--- NOTE | 2017-10-26 17:38 | PDOC ---
History of Present Illness - General Chief Complaint: Chest Pain Stated Complaint: PCP SENT Time Seen by Provider: 10/26/17 17:02 - History of Present Illness Initial Comments: 77 year old female with MVP and HTN presenting with chest pain for the past day. Describes the pain as semi positional and radiating to her left shoulder. It is not consistent or wakes her up out of bed but does worry her at is different than her usual pain from mitral valve prolapse. She was sent in by Dr. Figueroa's office earlier today after she called in and spoke to them about her chest pain. Denies fevers, chills, nausea, vomiting, diarrhea or constipation. 10/26/17 20:03 Past History - Past Medical History Allergies/Adverse Reactions: Allergies Allergy/AdvReac Type Severity Reaction Status Date / Time Penicillins Allergy Intermediate Swelling Verified 10/26/17 17:03 Sulfa (Sulfonamide Allergy Intermediate Rash Verified 10/26/17 17:03 Antibiotics) all blood pressure meds Allergy Uncoded 10/26/17 17:03 Home Medications: Ambulatory Orders Ascorbic Acid [Vitamin C] 1 tab PO DAILY 04/03/13 Vitamin B Complex [B Complex] 1 each PO DAILY 04/03/13 Multivitamins [Multivit ([facility] Formulary)] 1 each PO DAILY 04/04/13 Ranitidine HCl [Zantac] 150 mg PO DAILY 09/24/14 L.acidoph,Paracasei, B.lactis [Probiotic] 1 each PO DAILY 03/10/17 Albuterol 0.083% Nebulizer Michaelle [Ventolin 0.083% Nebulizer Soln -] 1 neb NEB QID PRN 06/27/17 Aspirin 81 mg PO DAILY #30 tab.chew 06/27/17 Nitroglycerin 0.3 mg SL [id number] PRN #10 tab.subl 06/27/17 Diltiazem HCl [Cardizem LA] 120 mg PO BID 10/26/17 Anemia: No Asthma: Yes Cancer: No Cardiac Disorders: Yes (MVP) CVA: No COPD: No CHF: No Dementia: No Diabetes: No GI Disorders: Yes (ACID REFLUX) Disorders: No HTN: Yes Hypercholesterolemia: Yes Liver Disease: No Seizures: No Thyroid Disease: No - Surgical History 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) Appendectomy: No Cardiac Surgery: No Cholecystectomy: No Lung Surgery: No Neurologic Surgery: No Orthopedic Surgery: No - Suicide/Smoking/Psychosocial Hx Smoking History: Never smoked Have you smoked in the past 12 months: No Hx Alcohol Use: No Drug/Substance Use Hx: No Substance Use Type: None Hx Substance Use Treatment: No Review of Systems - Review of Systems Constitutional: No: Chills, Diaphoresis, Fever HEENTM: No: Eye Pain, Blurred Vision, Recent change in vision Respiratory: No: Cough, Shortness of Breath, Wheezing, Productive cough Cardiac (ROS): Yes: Chest Pain, Chest Tightness. No: Edema, Irregular Heart Rate ABD/GI: No: Diarrhea, Nausea, Vomiting : No: Burning, Dysuria, Discharge, Hematuria Musculoskeletal: No: Back Pain, Muscle Pain, Muscle Weakness Integumentary: No: Bruising, Change in Color, Erythema, Flushing, Lesions Neurological: No: Headache, Numbness Psychiatric: No: Anxiety, Frequent Crying *Physical Exam - Vital Signs Last Vital Signs Temp Pulse Resp BP Pulse Ox 97.5 F L 109 H 17 157/86 99 10/26/17 17:03 10/26/17 17:03 10/26/17 17:03 10/26/17 17:03 10/26/17 17:03 ED Treatment Course - LABORATORY CBC & Chemistry Diagram: 10/27/17 07:40 10/27/17 07:40 Medical Decision Making - Medical Decision Making Admitted for low risk chest pain rule out as Dr. Figueroa was concerned about her overall repeat chest pain presentations and lack of medical compliance ( takes garlic instead of her anti-htn medications). Spoke to Dr. Figueroa ove the phone and he will be the consulting unmanned equipment operator and felt strongly about obs tele. She took aspirin 325 this AM so does not need it here. 10/26/17 20:16 *DC/Admit/Observation/Transfer Diagnosis at time of Disposition: Chest pain - Discharge Dispostion Disposition: HOME Condition at time of disposition: Improved - Referrals - Patient Instructions - Post Discharge Activity
--- NOTE | 2017-10-26 17:44 | PDOC ---
Attending Attestation - Resident Resident Name: LaraoNraxochilt - HPI HPI: 10/31/17 09:10 Pt presents to the ED complaining of substernal chest pain that is worse with burping or leaning forward. Pain is non exertional and not pleuritic. Denies pain if she is not leaning forward or burping. Denies abdominal pain. Pt has a prior history of similar pain, but this pain was more persistent, so she called her incoming inspector who advised her to come in. - Physicial Exam PE: 10/31/17 09:15 Agree with resident exam. Patient iswell appearing and in no acute distress. Lungs are clear. Heart has regular rate and rhythm. Abdomen is non tender. - Medical Decision Making 10/31/17 09:16 Pt presents to the ED complaining of chest pain. Her pain is atypical, and cardiac enzymes are negative. however, given her multiple risk factors for cardiac disease she may benefit for observation for rule out ACS. Will discuss with patient's incoming inspector.
[2017-10-26 18:06] LABS: ALBUMIN 3.8 g/dl (3.4-5.0); ANION GAP 4 (8-16); BILIRUBIN,TOTAL 0.3 mg/dL (0.2-1.0); BLOOD UREA NITROGEN 11 mg/dL (7-18); CALCIUM 9.2 mg/dL (8.5-10.1); CHLORIDE 106 mmol/L (98-107); CO2 29 mmol/L (21-32); CREATININE 0.9 mg/dL (0.55-1.02); GLUCOSE,RANDOM 108 mg/dL (74-106); POTASSIUM 4.2 mmol/L (3.5-5.1); SGOT/AST 17 U/L (15-37); SGPT/ALT 25 U/L (12-78); SODIUM 139 mmol/L (136-145)
[2017-10-26 18:08] LABS: ALK PHOS 70 U/L (45-117)
--- NOTE | 2017-10-26 20:36 | PN ---
Teaching Attending Note Name of Resident: Alfonso Linder ATTENDING PHYSICIAN STATEMENT I saw and evaluated the patient. I reviewed the resident's note and discussed the case with the resident. I agree with the resident's findings and plan as documented. SUBJECTIVE: 76 F with pmhx. of MVP and associated syndrome, htn, hld, asthma who presents with left chest pain. States pain has been present for weeks and is worse when she palpates her left breast. Also, exacerbated by lifting heavy items. No chest pressure and does not radiate. No diaphoresis, vomiting, or diarrhea. No shortness of breath. States she follows with PCP for her annual breast exams. OBJECTIVE: Physical: VS: Vital Signs Period Temp Pulse Resp BP Sys/Loza Pulse Ox Last 24 Hr 97.5 F-98.0 F 74-109 16-17 130-157/78-86 98-99 GEN:NAD, Resting in bed, AA0X3 HEENT: NCAT, PERRL, Throat without erythema or exudates CARD: RRR S1, S2, TTP on Left Breast Wall RESP: CTAB ABD: Bsx4, NTD to palpation EXT:- C/C/E CBCD WBC 5.7 K/mm3 (4.0-10.0) 10/26/17 17:28 RBC 3.98 M/mm3 (3.60-5.2) 10/26/17 17:28 Hgb 13.1 GM/dL (10.7-15.3) 10/26/17 17:28 Hct 37.8 % (32.4-45.2) 10/26/17 17:28 MCV 95.0 fl (80-96) 10/26/17 17:28 MCHC 34.5 g/dl (32.0-36.0) 10/26/17 17:28 RDW 13.2 % (11.6-15.6) 10/26/17 17:28 Plt Count 324 K/MM3 (134-434) 10/26/17 17:28 MPV 7.4 fl (7.5-11.1) L 10/26/17 17:28 CMP Sodium 139 mmol/L (136-145) 10/26/17 17:28 Potassium 4.2 mmol/L (3.5-5.1) 10/26/17 17:28 Chloride 106 mmol/L (98-107) 10/26/17 17:28 Carbon Dioxide 29 mmol/L (21-32) 10/26/17 17:28 Anion Gap 4 (8-16) L 10/26/17 17:28 BUN 11 mg/dL (7-18) 10/26/17 17:28 Creatinine 0.9 mg/dL (0.55-1.02) 10/26/17 17:28 Creat Clearance w eGFR > 60 (>60) 10/26/17 17:28 Random Glucose 108 mg/dL (74-106) H 10/26/17 17:28 Calcium 9.2 mg/dL (8.5-10.1) 10/26/17 17:28 Total Bilirubin 0.3 mg/dL (0.2-1.0) D 10/26/17 17:28 AST 17 U/L (15-37) 10/26/17 17:28 ALT 25 U/L (12-78) 10/26/17 17:28 Alkaline Phosphatase 70 U/L (45-117) 10/26/17 17:28 Total Protein 8.0 g/dl (6.4-8.2) 10/26/17 17:28 Albumin 3.8 g/dl (3.4-5.0) 10/26/17 17:28 CARDIAC ENZYMES Creatine Kinase 166 IU/L (26-192) 10/26/17 17:28 Troponin I < 0.02 ng/ml (0.00-0.05) 10/26/17 17:28 Allergies Penicillins Allergy (Intermediate, Verified 10/26/17 17:03) Swelling Sulfa (Sulfonamide Antibiotics) Allergy (Intermediate, Verified 10/26/17 17:03) Rash G6PD all blood pressure meds Allergy (Uncoded 10/26/17 17:03) EKG: NSR, NO St-T changes ASSESSMENT AND PLAN: 77 yo F with HTN, HLD, MVP, Ashtma who presents with chest pain. 1.) Chest Pain- Atypical - Most likely musculoskeltal/costochondritis - Trend trop/Ekg - Echo if not already done - Cardio Consult 2.) HLD - Check. Lipid Panel 3.) Ashtma - Controlled - Nebs Prn 4.) HTN - Pt. Refusing all anti-HTN meds -States Cee does not work for her and she does not want to take it. 4.) Dvt Ppx - Scds Place in Obs-Tele
[2017-10-26] MEDS ORDERED: NITROGLYCERIN SUBLINGUAL 1/200 0.3 MG BTL SL PRN (21:13)
[2017-10-26] MEDS ORDERED: ALBUTEROL SO4 0.083% IH SOL 2.5 MG/3 ML VIAL.NEB. NEB PRN (21:13)
[2017-10-26] MEDS ORDERED: dilTIAZem HCL 60 MG TABLET (FP) ONE (22:04)
--- NOTE | 2017-10-26 22:10 | HP ---
CHIEF COMPLAINT: Chest Pain PCP: Dr Hester HISTORY OF PRESENT ILLNESS: 77yo F with PMHx of MVP and HTN who was sent to the ER by Dr Figueroa due to L chest soreness that started yesterday. It began suddenly, is intermittent, is atypical, with pleuritic components. Not worse w/ exertion. No radiation. No assoc SOB. Similar to chronically intermittent pain from her MVP. Called Dr Figueroa, who sent her to the ER. Not very compliant with her BP, has self- discontinued multiple BP meds in the past due to "adverse reactions", and states her home cardziem BID doesnt work, so she resorts to eating garlic PRN for her pressures. Had negative stress test in June. In the ER, her BP was 150s/80s. Labs were unremarkable, trops negative. EKG showed NSR without ST or TW changes. CXR was performed (no acute process on my read). 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 PAST SURGICAL HISTORY: Ex-lap for liver tumor Social History: Smoking: Denies Alcohol: Denies Drugs: Denies Allergies Penicillins Allergy (Intermediate, Verified 10/26/17 17:03) Swelling Sulfa (Sulfonamide Antibiotics) Allergy (Intermediate, Verified 10/26/17 17:03) Rash G6PD all blood pressure meds Allergy (Uncoded 10/26/17 17:03) HOME MEDICATIONS: Home Medications Medication Instructions Recorded Ascorbic Acid [Vitamin C] 1 tab PO DAILY 04/03/13 Vitamin B Complex [B Complex] 1 each PO DAILY 04/03/13 Multivitamins [Multivit ([facility] 1 each PO DAILY 04/04/13 Formulary)] Ranitidine HCl [Zantac] 150 mg PO DAILY 09/24/14 L.acidoph,Paracasei, B.lactis 1 each PO DAILY 03/10/17 [Probiotic] Albuterol 0.083% Nebulizer Michaelle 1 neb NEB QID PRN 06/27/17 [Ventolin 0.083% Nebulizer Soln -] Aspirin 81 mg PO DAILY #30 tab.chew 06/27/17 Nitroglycerin 0.3 mg SL [id number] PRN #10 06/27/17 tab.subl Diltiazem HCl [Cardizem LA] 120 mg PO BID 10/26/17 REVIEW OF SYSTEMS CONSTITUTIONAL: Absent: fever, chills, diaphoresis, generalized weakness, malaise, loss of appetite, weight change HEENT: Absent: rhinorrhea, nasal congestion, throat pain, throat swelling, difficulty swallowing, mouth swelling, ear pain, eye pain, visual changes CARDIOVASCULAR: Absent: chest pain, syncope, palpitations, irregular heart rate , lightheadedness, peripheral edema RESPIRATORY: Absent: cough, shortness of breath, dyspnea with exertion, orthopnea, wheezing, stridor, hemoptysis GASTROINTESTINAL:Absent: abdominal pain, abdominal distension, nausea, vomiting , diarrhea, constipation, melena, hematochezia GENITOURINARY: Absent: dysuria, frequency, urgency, hesitancy, hematuria, flank pain, genital pain MUSCULOSKELETAL: Absent: myalgia, arthralgia, joint swelling, back pain, neck pain SKIN: Absent: rash, itching, pallor HEMATOLOGIC/IMMUNOLOGIC: Absent: easy bleeding, easy bruising, lymphadenopathy, frequent infections ENDOCRINE:Absent: unexplained weight gain, unexplained weight loss, heat intolerance, cold intolerance NEUROLOGIC: Absent: headache, focal weakness or paresthesias, dizziness, unsteady gait, seizure, mental status changes, bladder or bowel incontinence PSYCHIATRIC: Absent: anxiety, depression, suicidal or homicidal ideation, hallucinations. PHYSICAL EXAMINATION Vital Signs Period Temp Pulse Resp BP Sys/Loza Pulse Ox Last 24 Hr 97.5 F-98.0 F 74-109 16-17 112-157/77-86 98-99 GEN: AAOx3, No distress, lying comfortably, smiling HEENT: PERRLA, EOmi, no JVD CV: S1, S2, RRR, 3/6 systolic murmur in apex; no CW tenderness, but has tenderness to L breast from fibroadenomas LUNG: CTABL ABD: Soft, NT, ND, normoactive BS MSK: No edema, no erythema NEURO: CN 2-12 intact, no MSK or sensation deficits ASSESSMENT/PLAN: 77yo F with PMHx of MVP and HTN who presents to the ER with L chest soreness that started yesterday, sent in by Dr Figueroa. # Chest Pain -- Atypical. EKG wnl. Trend trops. Recent neg stress test in Jun. Tele observation. Nitro PRN for CP. Will get echo. Dr Figueroa consulted. # HTN -- Controlled anika. Pt is on Carvedilol BID, but is not compliant. Endorses adverse reactions to most other BP meds. Risks of not taking meds explained. # Fibroadenoma -- Pt has bilateral fibroadenomas, tender to palpation, has had workup in the past including imaging, continue to f/u outpatinet # Asthma -- No SOB at the moment. 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 - New Patient This patient is new to me today: Yes Date on this admission: 10/27/17 - Critical Care Critical Care patient: No Hospitalist Screening - Colonoscopy Questionnaire Colonoscopy Questionnaire: Colonoscopy Questionnaire - Patient: 50 - 75 years old and never had a screening colonoscopy: Unknown History of colon or rectal polyps, or CA: Unknown History of IBD, Crohn's disease or UC: Unknown History of abdominal radiation therapy as a child: Unknown - Relative: 1 with colon or rectal CA, or polyps at age 60 or younger: Unknown Colon or rectal CA diagnosed at age 45 or younger: Unknown Multiple relatives with colon or rectal CA: Unknown - Outcome: Screening Result: Negative Screen
[2017-10-27 04:13] VITALS: BMI 27.5
[2017-10-27 08:05] LABS: BASO % 0.8 % (0-2.0); EOS % 5.1 % (0-4.5); HEMATOCRIT 34.7 % (32.4-45.2); HEMOGLOBIN 11.6 GM/dL (10.7-15.3); MCHC 33.5 g/dl (32.0-36.0); MEAN CELL VOLUME 95.7 fl (80-96); MEAN PLT VOLUME 7.3 fl (7.5-11.1); MONO % 8.9 % (3.8-10.2); NEUT % 49.2 % (42.8-82.8); PLATELET COUNT 278 K/MM3 (134-434); RBC 3.63 M/mm3 (3.60-5.2); RDW 13.3 % (11.6-15.6)
[2017-10-27 08:37] LABS: ANION GAP 10 (8-16); BLOOD UREA NITROGEN 11 mg/dL (7-18); CHLORIDE 106 mmol/L (98-107); CO2 27 mmol/L (21-32); GLUCOSE,RANDOM 97 mg/dL (74-106); SODIUM 143 mmol/L (136-145)
[2017-10-27 08:38] LABS: CALCIUM 8.9 mg/dL (8.5-10.1); CREATININE 0.8 mg/dL (0.55-1.02); MAGNESIUM 2.2 mg/dL (1.8-2.4); PHOSPHOROUS 3.8 mg/dL (2.5-4.9)
[2017-10-27 09:06] LABS: CHOLESTEROL 265 mg/dL (50-200); HDL CHOLESTEROL 67 mg/dL (40-60); TRIGLYCERIDES 93 mg/dL (35-160)
[2017-10-27 09:25] VITALS: BP 148/80; PULSE 84; TEMP 98
[2017-10-27] MEDS ORDERED: LACTOBACILLUS ACIDOPHILUS 1 TABLET PO SCH (10:00)
[2017-10-27] MEDS ORDERED: ASPIRIN 81 MG CHEWABLE TABLETS PO SCH (10:00)
[2017-10-27] MEDS ORDERED: RANITIDINE HCL 150 MG TABLET (FP) PO SCH (10:00)
--- NOTE | 2017-10-27 13:13 | CON.CARD ---
Consult Consult Specialty:: cardiology - History of Present Illness Chief Complaint: Chest pain History of Present Illness: 76 year old female with long-standing history of hypertension, hyperlipidemia, bronchial asthma, mitral valve prolapse and chronic atypical chest pain. Patient admitted with left precordial chest pain described as heaviness related to change in posture or after she had lifted a heavy package. Pains would last for several minutes and abates spontaneously. Symptoms started three weeks ago. No history of exertional chest pain or discomfort. Denies having exertional dyspnea, PND or orthopnea. Patient has again stopped taking her medications for hypertension AMA. Patient feel that the only thing that helps her BP is "garlic ". - History Source History Provided By: Patient - Past Medical History Cardio/Vascular: Yes: HTN ...: No - Past Surgical History Past Surgical History: Yes: Tonsillectomy Additional Surgical History: Right Breast benign cyst. Exploratory surgery for possible liver tumor which was negative. - Alcohol/Substance Use Hx Alcohol Use: Yes (Occasional glass of wine) - Smoking History Smoking history: Never smoked Have you smoked in the past 12 months: No - Social History Usual Living Arrangement: Alone (Retired.) Home Medications - Allergies Allergies/Adverse Reactions: Allergies Allergy/AdvReac Type Severity Reaction Status Date / Time Penicillins Allergy Intermediate Swelling Verified 10/26/17 17:03 Sulfa (Sulfonamide Allergy Intermediate Rash Verified 10/26/17 17:03 Antibiotics) all blood pressure meds Allergy Uncoded 10/26/17 17:03 - Home Medications Home Medications: Ambulatory Orders Ascorbic Acid [Vitamin C] 1 tab PO DAILY 04/03/13 Vitamin B Complex [B Complex] 1 each PO DAILY 04/03/13 Multivitamins [Multivit ([facility] Formulary)] 1 each PO DAILY 04/04/13 Ranitidine HCl [Zantac] 150 mg PO DAILY 09/24/14 L.acidoph,Paracasei, B.lactis [Probiotic] 1 each PO DAILY 03/10/17 Albuterol 0.083% Nebulizer Michaelle [Ventolin 0.083% Nebulizer Soln -] 1 neb NEB QID PRN 06/27/17 Aspirin 81 mg PO DAILY #30 tab.chew 06/27/17 Nitroglycerin 0.3 mg SL [id number] PRN #10 tab.subl 06/27/17 Diltiazem HCl [Cardizem LA] 120 mg PO BID 10/26/17 Family Disease History - Family Disease History Family Disease History: Heart Disease: Father ( in 60s of [place]. Had hypertension and CVA. ), Mother (Atrial fibrillation and hypertension), CA: Sister ( of Pancreatic Cancer ) Review of Systems Findings/Remarks: Constitutional: No history of chills, fever or night sweats. No history of unintentional weight loss. HEENT: No history of headaches, diplopia, blurred vision. No history of epistaxis or hoarseness. No tinnitus. Cardiovascular: See history of present illness. Respiratory: See history of present illness. No history of cough, expectoration or hemoptysis or wheezing. No history of tuberculosis. GI: No history of nausea, vomiting, melena, or hematemesis. No history of abdominal pain or discomfort, no change in bowel habits reported. See history of present illness. 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 No history of focal weakness. Endocrine: No history of polyuria or polydipsia. No history of intolerance to cold or warm weather. Musculoskeletal: No arthralgias or history of myalgia. : No history of frequency or hematuria. HEME: No history of bleeding, anemia or ecchymosis. Vital Signs: 77 year old female was in no acute distress, no pallor, cyanosis, clubbing, or jaundice. Vital Signs Temperature 98 F 10/27/17 09:00 Pulse Rate 84 10/27/17 09:00 Respiratory Rate 20 10/27/17 09:23 Blood Pressure 148/80 10/27/17 09:00 O2 Sat by Pulse Oximetry (%) 98 10/27/17 09:23 Neck: Supple, no JVD, negative HJR, carotids were equal and upstrokes were normal, no thyromegaly appreciated. Heart: PMI was in the 5th intercostal space, no heaves or thrills, S1 and S2 were normal, nonjection systolic click heard along LSB. No murmurs or gallops were appreciated. Lungs: Clear on auscultation bilaterally. Abdomen: Soft, nontender, no hepatosplenomegaly appreciated, and no palpable masses were felt. Extremities: No calf tenderness or dependent edema. Pulses are normal. - Other Data Labs, Other Data: CBC, BMP 10/27/17 07:40 10/27/17 07:40 Troponin, BNP 10/26/17 10/27/17 10/27/17 17:28 00:15 07:40 Troponin I < 0.02 < 0.02 < 0.02 10/27/17 07:40 Troponin I Cancelled Troponin, BNP 10/26/17 10/27/17 10/27/17 17:28 00:15 07:40 Troponin I < 0.02 < 0.02 < 0.02 10/27/17 07:40 Troponin I Cancelled Imaging - Results Chest X-ray: Report Reviewed Ultrasound: Report Reviewed (Echocardiogram) Assessment/Plan IMPRESSION: 1. Chest pain syndrome, clinical presentation compatible with pain of musculoskeletal origin. 2. History of Mitral Valve prolapse, mild mitral regurgitation. 3. Aortic valvular disease with aortic regurgitation (by doppler interrogation). 4. LV diastolic dysfunction. 5. Bronchial asthma, in remission. 6. Poor compliance. RECOMMENDATION: 1. Close monitoring of blood pressure. 2. Increase ambulation. 3. Patient is aware of the risks associated with uncontrolled hypertension. Thank you for your referral. Dr. Figueroa
--- NOTE | 2017-10-27 14:25 | DS ---
Physical Exam: Selected Entries 10/26/17 10/27/17 10/27/17 17:03 09:00 09:23 Temperature 97.5 F L 98 F Pulse Rate 109 H 84 Respiratory 20 Rate Blood Pressure 148/80 O2 Sat by Pulse 98 Oximetry (%) Oxygen Delivery Room Air Method Laboratory Tests 10/26/17 10/26/17 10/27/17 17:28 17:28 00:15 WBC 5.7 Hgb 13.1 Hct 37.8 Plt Count 324 Sodium Potassium Chloride Carbon Dioxide Anion Gap BUN Creatinine Random Glucose Troponin I < 0.02 < 0.02 Triglycerides Cholesterol Total LDL Cholesterol HDL Cholesterol 10/27/17 10/27/17 10/27/17 07:40 07:40 07:40 WBC 5.0 Hgb 11.6 D Hct 34.7 Plt Count 278 Sodium 143 Potassium 4.0 Chloride 106 Carbon Dioxide 27 Anion Gap 10 BUN 11 Creatinine 0.8 Random Glucose 97 Troponin I < 0.02 Triglycerides 93 Cholesterol 265 H Total LDL Cholesterol 185 H HDL Cholesterol 67 H cxr- no acute pathology Echo- LV fxn, size, thickness, ef normal, mild moderate TR, RVSP normal HOSPITAL COURSE: Date of Admission:10/26/17 Date of Discharge: 10/27/17 77yo F with PMHx of MVP and HTN who was sent to the ER by Dr Figueroa due to L chest soreness that started yesterday. Patient admitted for r/o acs. Troponins negative x3. Echo performed (Results above). Chest pain no longer there. Patient counseled on importance of continuing her home medications. Patient d/c with cardiology f/u and pcp f/u. Last stress test in June- no ischemia. Minutes to complete discharge: 38 Discharge Summary Reason For Visit: CHEST PAIN Current Active Problems Chest pain (Acute) Asthma (Chronic) GERD (gastroesophageal reflux disease) (Chronic) HTN (hypertension) (Chronic) Condition: Improved - Instructions Diet, Activity, Other Instructions: You were in the hospital for your atypical chest soreness/pain. You were ruled out for any cardiac causes of your symptoms. Please follow up with your primary care provider and special education director(Dr. Figueroa) in 1 week for post-hospital evaluation. Continue your home medications as prescribed. *If you have new chest pain, shortness of breath, or any new/worsening symptoms please come back to the hospital immediately.* Referrals: Akiko Davis MD [Primary Care Provider] - 1 Week James Figueroa MD [Staff Physician] - 1 Week Disposition: HOME - Home Medications Comprehensive Discharge Medication List: Ambulatory Orders Ascorbic Acid [Vitamin C] 1 tab PO DAILY 04/03/13 Vitamin B Complex [B Complex] 1 each PO DAILY 04/03/13 Multivitamins [Multivit ([facility] Formulary)] 1 each PO DAILY 04/04/13 Ranitidine HCl [Zantac] 150 mg PO DAILY 09/24/14 L.acidoph,Paracasei, B.lactis [Probiotic] 1 each PO DAILY 03/10/17 Albuterol 0.083% Nebulizer Michaelle [Ventolin 0.083% Nebulizer Soln -] 1 neb NEB QID PRN 06/27/17 Aspirin 81 mg PO DAILY #30 tab.chew 06/27/17 Nitroglycerin 0.3 mg SL [id number] PRN #10 tab.subl 06/27/17 Diltiazem HCl [Cardizem LA] 120 mg PO BID 10/26/17 This patient is new to me today: Yes Date on this admission: 10/27/17 Emergency Visit: Yes ED Registration Date: 10/26/17 Care time: The patient presented to the Emergency Department on the above date and was hospitalized for further evaluation of their emergent condition. Critical Care patient: No - Discharge Referral Referred to [facility] No
--- NOTE | 2017-10-27 14:29 | PN ---
Teaching Attending Note Name of Resident: Christopher Hernadez ATTENDING PHYSICIAN STATEMENT I saw and evaluated the patient. I reviewed the resident's note and discussed the case with the resident. I agree with the resident's findings and plan as documented. SUBJECTIVE: cp resolved . no SOB or PUCKETT or light headedness OBJECTIVE: NA d Cv: RRR Lungs: CTAB Abd: soft, NT,ND ,NL BS Ext: no edema breasts, no masses felt , no discharge form Nipples , no skin changes , no LAP in axillae. tenderness t opalpation of breast in all quadrants ASSESSMENT AND PLAN: 77 y/o lady with h/o HTN, diastolic dysfunction , MVP, aortic regurgitation and other medical problems who presneted with recurent chest pain 1- Cp , EKG with no acute ischemic changes. trop n; x2. ACS was ruled out could be MS jose with pain with palpation d/w Dr. Denis cont asa and cardizem f/u in office in 1 week recent stress in /18 neg echo this admission reviewed. 2- HTN: advised to cont cardizem. she prefers garlic dispo : dc home
--- NOTE | 2017-10-27 19:51 | EKG ---
Test Reason : Blood Pressure : / mmHG Vent. Rate : 088 BPM Atrial Rate : 088 BPM P-R Int : 166 ms QRS Dur : 082 ms QT Int : 356 ms P-R-T Axes : 054 028 051 degrees QTc Int : 430 ms NORMAL SINUS RHYTHM NORMAL ECG WHEN COMPARED WITH ECG OF 16-AUG-2017 19:44, NO SIGNIFICANT CHANGE WAS FOUND Confirmed by MARJORIE EPDRAZA MD ([id number]) on 10/27/2017 7:51:19 PM Referred By: Confirmed By:MARJORIE PEDRAZA MD
== END 2017-10-27 14:50 | disposition home or self-care (01) ==
LOC: JER 16:54 → JERBED 20:15 → J4S 10-27 04:00
PROVIDERS: ADMIT Internal Medicine; ATTEND Internal Medicine
DX: R07.9 Chest pain, unspecified (principal); I10 Essential (primary) hypertension; I34.1 Nonrheumatic mitral (valve) prolapse; I51.9 Heart disease, unspecified; E78.5 Hyperlipidemia, unspecified; J45.909 Unspecified asthma, uncomplicated; K21.9 Gastro-esophageal reflux disease without esophagitis; D24.1 Benign neoplasm of right breast; D24.2 Benign neoplasm of left breast; Z91.14 Patient's other noncompliance with medication regimen; Z88.0 Allergy status to penicillin; Z88.2 Allergy status to sulfonamides; Z88.8 Allergy status to other drugs, medicaments and biological substances
CPT/HCPCS: 36415; 71045-TC-FY; 80048; 80053; 80061; 82550; 82553; 83721; 83735; 84100; 84484; 85025; 93005; 93010; 93306-TC; 99285-25; G0378

== ENCOUNTER 2017-11-16 08:47 | Day surgery (SDC) | payer OTHER, BC ==
[2017-11-15 15:06] VITALS: BMI 27.1
[2017-11-16 10:12] VITALS: TEMP 97.5
[2017-11-16 11:04] VITALS: BP 120/61; PULSE 69
--- NOTE | 2017-11-17 15:08 | PATH ---
Surgical Pathology Report Patient Name: HAYLEY MEZA [facility]. Rec. #: [id number] /Age/Gender: 1940 (Age: 77) / F Account: [id number] Location: [facility]-ENDOSCOPY Taken: 11/16/2017 Received: 11/16/2017 Reported: 11/17/2017 Physicians: Lonnie Peterson D.O. Specimen(s) Received A: BX ILEOCECAL VALVE POLYP B: BX RIGHT COLON POLYP C: BX LEFT COLON POLYP Clinical History Colon screening Postoperative diagnosis: Colon polyps, hemorrhoids Final Diagnosis A. ILEOCECAL VALVE, POLYP, BIOPSY: TUBULAR ADENOMA. B. RIGHT COLON, POLYP, BIOPSY: HYPERPLASTIC POLYP. C. LEFT COLON, POLYP, BIOPSY: HYPERPLASTIC POLYP. Electronically Signed Danita Marie M.D. Gross Description A. Received in formalin, labeled "biopsy ileocecal valve polyp" is a vang, irregular portion of soft tissue measuring 0.3 cm. in greatest dimension. The specimen is submitted in toto in one cassette. B. Received in formalin, labeled "biopsy right colon polyp" are 2 vang, irregular portions of soft tissue measuring 0.2 and 0.3 cm. in greatest dimension. The specimens are submitted in toto in one cassette. C. Received in formalin, labeled "biopsy left colon polyp" is a vang, irregular portion of soft tissue measuring 0.3 cm. in greatest dimension. The specimen is submitted in toto in one cassette. /11/16/2017 [place]/11/16/2017
== END 2017-11-16 11:16 | disposition home or self-care (01) ==
LOC: JASU-ENDO 08:47
PROVIDERS: ATTEND Internal Medicine Gastroenterology
PROC: 0DBF8ZX Excision of Right Large Intestine, Via Natural or Artificial Opening Endoscopic, Diagnostic (ICD-10-PCS; 2017-11-16)
PROC: 0DBG8ZX Excision of Left Large Intestine, Via Natural or Artificial Opening Endoscopic, Diagnostic (ICD-10-PCS; 2017-11-16)
PROC: 0DBC8ZX Excision of Ileocecal Valve, Via Natural or Artificial Opening Endoscopic, Diagnostic (ICD-10-PCS; principal; 2017-11-16 09:45)
DX: Z12.11 Encounter for screening for malignant neoplasm of colon (principal); K63.5 Polyp of colon; K64.8 Other hemorrhoids
CPT/HCPCS: 88305-TC

== ENCOUNTER 2017-11-23 08:20 | Day surgery (SDC) | payer OTHER, BC ==
[2017-11-23] MEDS ORDERED: LIDOCAINE HCL/PF 2% SDV 5ML VIAL ONE (08:39)
[2017-11-23] MEDS ORDERED: SUCCINYLCHOLINE CHLORIDE 200 MG/10 ML VIAL ONE (08:39)
[2017-11-23] MEDS ORDERED: GLYCOPYRROLATE 0.2 MG/1 ML VIAL ONE ×2 (08:39)
[2017-11-23] MEDS ORDERED: PROPOFOL 20 ML ONE ×2 (08:39)
[2017-11-23 08:52] VITALS: BMI 27.6
[2017-11-23 09:22] VITALS: TEMP 97.8
[2017-11-23 15:42] VITALS: BP 126/67; PULSE 61
--- NOTE | 2017-11-24 15:26 | PATH ---
Surgical Pathology Report Patient Name: HAYLEY MEZA [facility]. Rec. #: [id number] /Age/Gender: 1940 (Age: 77) / F Account: [id number] Location: [facility]-ENDOSCOPY Taken: 11/23/2017 Received: 11/23/2017 Reported: 11/24/2017 Physicians: Lonnie Peterson D.O. Specimen(s) Received A: BX DUODENAL BULB B: BX BODY/ANGULARIS C: BX CARDIA POLYP Clinical History GERD Postoperative diagnosis: GERD and polyps Final Diagnosis A. DUODENAL BULB, POLYP, BIOPSY: POLYPOID DUODENAL MUCOSA WITH MILD CHRONIC DUODENITIS AND MILD DWIGHT'S GLAND HYPERPLASIA. B. STOMACH, ANGULARIS/BODY, BIOPSY: GASTRIC BODY MUCOSA WITH MILD CHRONIC GASTRITIS. IMMUNOHISTOCHEMICAL STAIN FOR H. PYLORI IS NEGATIVE. C. STOMACH, CARDIA, POLYP, BIOPSY: FUNDIC GLAND POLYP. IMMUNOHISTOCHEMICAL STAIN FOR H. PYLORI IS NEGATIVE. Electronically Signed Lori Lara M.D. Gross Description A. Received in formalin, labeled "biopsy duodenal bulb polyp" is a vang, irregular portion of soft tissue measuring 0.4 cm. in greatest dimension. The specimen is submitted in toto in one cassette. B. Received in formalin, labeled "biopsy angularis/body" is a vang, irregular portion of soft tissue measuring 0.4 cm. in greatest dimension. The specimen is submitted in toto in one cassette. C. Received in formalin, labeled "biopsy polyp at cardia" is a vang, irregular portion of soft tissue measuring 0.7 cm. in greatest dimension. The specimen is submitted in toto in one cassette. 11/23/2017 [facility]/23/2017
== END 2017-11-23 10:30 | disposition home or self-care (01) ==
LOC: JASU-ENDO 08:20
PROVIDERS: ATTEND Internal Medicine Gastroenterology
PROC: 0DB68ZX Excision of Stomach, Via Natural or Artificial Opening Endoscopic, Diagnostic (ICD-10-PCS; 2017-11-23)
PROC: 0DB98ZX Excision of Duodenum, Via Natural or Artificial Opening Endoscopic, Diagnostic (ICD-10-PCS; principal; 2017-11-23 09:00)
DX: K21.9 Gastro-esophageal reflux disease without esophagitis (principal); K31.7 Polyp of stomach and duodenum
CPT/HCPCS: 88305-TC; 88342-TC

== ENCOUNTER 2023-03-10 16:16 | Observation (INO) | payer OTHER, BC ==
[2023-03-10 16:28] VITALS: BMI 27.9
[2023-03-10 17:40] LABS: BASO % 0.7 % (0-2.0); EOS % 3.1 % (0-4.5); HEMATOCRIT 38.7 % (32.4-45.2); HEMOGLOBIN 12.2 GM/dL (10.7-15.3); LYMPH % 34.3 % (8-40); MCH 30.7 pg (25.7-33.7); MCHC 31.6 g/dl (32.0-36.0); MEAN CELL VOLUME 97.1 fl (80-96); MEAN PLT VOLUME 7.4 fl (7.5-11.1); MONO % 7.6 % (3.8-10.2); NEUT % 54.3 % (42.8-82.8); PLATELET COUNT 315 10^3/uL (134-434); RBC 3.98 M/mm3 (3.60-5.2); RDW 16.5 % (11.6-15.6); WHITE BLOOD COUNT 5.8 K/mm3 (4.0-10.0)
[2023-03-10 17:42] LABS: CHLORIDE 96 mmol/L (98-107)
[2023-03-10 17:43] LABS: CALCIUM 7.9 mg/dL (8.5-10.1)
[2023-03-10 17:44] LABS: BLOOD UREA NITROGEN 9.6 mg/dL (7-18); GLUCOSE,RANDOM 72 mg/dL (74-106)
[2023-03-10 17:46] LABS: CREATININE 0.8 mg/dL (0.55-1.3)
[2023-03-10 18:47] LABS: POTASSIUM > 10.0 mmol/L (3.5-5.1); SODIUM 101 mmol/L (136-145); TOT PROT > 12.0 g/dl (6.4-8.2)
[2023-03-10 19:35] LABS: POTASSIUM 3.8 mmol/L (3.5-5.1)
[2023-03-10 19:39] LABS: BLOOD UREA NITROGEN 9.3 mg/dL (7-18); CALCIUM 8.6 mg/dL (8.5-10.1)
[2023-03-10 19:43] LABS: CREATININE 0.9 mg/dL (0.55-1.3)
[2023-03-11] MEDS ORDERED: ACETAMINOPHEN 650 MG/20.3 ML ORAL SOLUTION (CUPS) PO PRN (00:29)
[2023-03-11 07:11] LABS: HEMOGLOBIN 11.5 GM/dL (10.7-15.3); MEAN CELL VOLUME 95.1 fl (80-96); MEAN PLT VOLUME 7.7 fl (7.5-11.1)
[2023-03-11 07:15] LABS: BASO % 0.7 % (0-2.0); EOS % 2.8 % (0-4.5); HEMATOCRIT 34.8 % (32.4-45.2); LYMPH % 32.5 % (8-40); MCH 31.4 pg (25.7-33.7); PLATELET COUNT 303 10^3/uL (134-434); RBC 3.66 M/mm3 (3.60-5.2); WHITE BLOOD COUNT 5.8 K/mm3 (4.0-10.0)
[2023-03-11 07:36] LABS: POTASSIUM 4.4 mmol/L (3.5-5.1)
[2023-03-11 07:39] LABS: ALBUMIN 3.4 g/dl (3.4-5.0); BLOOD UREA NITROGEN 13.9 mg/dL (7-18); CALCIUM 8.8 mg/dL (8.5-10.1); MAGNESIUM 2.2 mg/dL (1.8-2.4)
[2023-03-11 07:41] LABS: CREATININE 0.8 mg/dL (0.55-1.3); PHOSPHOROUS 3.7 mg/dL (2.5-4.9)
[2023-03-11 07:43] LABS: BILIRUBIN,TOTAL 0.3 mg/dL (0.2-1)
[2023-03-11 07:52] LABS: TOT PROT 7.2 g/dl (6.4-8.2)
[2023-03-11 09:19] VITALS: TEMP 98.4
[2023-03-11] MEDS ORDERED: ENOXAPARIN NA (PORCINE) 40 MG/0.4 ML DISP.SYRIN SQ SCH (10:00)
[2023-03-11] MEDS ORDERED: ENOXAPARIN NA (PORCINE) 40 MG/0.4 ML DISP.SYRIN SQ ONE (10:38)
[2023-03-11 10:57] VITALS: BP 156/83; PULSE 89; RESP 15
== END 2023-03-11 10:48 | disposition home or self-care (01) ==
LOC: JER 16:16 → JERBED 21:02
PROVIDERS: ADMIT Internal Medicine; ATTEND Internal Medicine
DX: M54.2 Cervicalgia (principal); R68.84 Jaw pain; M06.9 Rheumatoid arthritis, unspecified; I34.1 Nonrheumatic mitral (valve) prolapse; J45.909 Unspecified asthma, uncomplicated; K21.9 Gastro-esophageal reflux disease without esophagitis; D24.9 Benign neoplasm of unspecified breast; Z88.0 Allergy status to penicillin; Z88.8 Allergy status to other drugs, medicaments and biological substances
CPT/HCPCS: 36415; 71045-TC-FY; 80048; 80053; 83036; 83735; 84100; 84484; 85025; 93005; 93010; 99285-25; G0378